=== PATIENT | female | born 1990 | race Caucasian/White ===

== ENCOUNTER 2022-03-18 08:51 | Emergency (ER) | payer OTHER, SELFPAY ==
[2022-03-18 08:53] VITALS: BP 148/90; PULSE 81; RESP 16; TEMP 36.2; O2SAT 99
--- NOTE | 2022-03-18 09:01 | ED.DENTAL ---
HPI - Dental/Oral General Chief complaint: Dental/Oral Stated complaint: tooth infection, bruising to face Time Seen by Provider: 03/18/22 09:00 History of Present Illness HPI Narrative: 31-year-old female presents the emergency room with complaints of left lower molar pain. Patient states general surgery, to remove her for wisdom teeth. States oral surgeon broke off her left lower molar and is remained in place. Patient states that she has had significant amount of pain there and bruising to the exterior surface of her left lower jaw. Patient states that she was on amoxicillin for approximately 2 months prior to and after the procedure. States that she has taken clindamycin following the procedure, and has noticed she develops hives every evening for the past 3 nights. Patient states that she has an appointment to follow-up with her oral surgeon next week. Related Data Allergies Allergy/AdvReac Type Severity Reaction Status Date / Time No Known Allergies Allergy Verified 03/18/22 09:03 Review of Systems Review of Systems: CONSTITUTIONAL: Denies fever, chills, or sweats. EYES: Denies visual changes, redness, or discharge. ENT: Reports dental pain CARDIOVASCULAR: Denies chest pain, palpitations, or edema. RESPIRATORY: Denies cough or dyspnea. GASTROINTESTINAL: Denies abdominal pain, nausea, vomiting, or diarrhea. GENITOURINARY: Denies dysuria or hematuria. SKIN: Denies rash or itching. MUSCULOSKELETAL: Denies back pain, joint pain, or myalgia. NEUROLOGIC: Denies headache, numbness, dizziness, or weakness. PSYCHIATRIC: Denies anxiety or depression. Exam Narrative: GENERAL: Well-appearing, well-nourished, and in no acute distress. HEAD: Normocephalic, atraumatic. EYES: PERRLA and EOMI. ENT: Fractured left lower molar. No surrounding erythema, no notable abscess, no gingival swelling NECK: Supple. No adenopathy or masses. No carotid bruits or JVD CHEST: Clear to auscultation. No respiratory distress. No wheezes rales or rhonchi HEART: Regular rate and rhythm. No murmur heard. Normal peripheral pulses. ABDOMEN: Soft, nontender, nondistended, normal active bowel sounds. EXTREMITIES: Normal range of motion. No edema. SKIN: Warm, dry, no rash. NEURO: No focal deficits. Alert and oriented x3. PSYCH: Normal mood and affect. Course Vital Signs Vital signs: Vital Signs Temperature 36.2 C L 03/18/22 08:53 Pulse Rate 81 03/18/22 08:53 Respiratory Rate 16 03/18/22 08:53 Blood Pressure 148/90 H 03/18/22 08:53 Pulse Oximetry 99 03/18/22 08:53 Temperature 36.2 C L 03/18/22 08:53 Pulse Rate 81 03/18/22 08:53 Respiratory Rate 16 03/18/22 08:53 Blood Pressure 148/90 H 03/18/22 08:53 Pulse Oximetry 99 03/18/22 08:53 Procedures Nerve Block Nerve Block 1: Nerve block date: 03/18/22 Nerve block time: 09:29 Time out performed: Yes Local Anesthetic: bupivacaine 0.25% and with epi Amount of anesthesia used (mL): 3 Side: left Nerve Blocks: other (left inferior alveolar ) Intraoral Nerve Block: inferior alveolar Procedure Successful: Yes Patient Tolerated Procedure: well Complications: none Discharge Plan Discharge Clinical Impression: Toothache Patient Disposition: Home, Self-Care Condition: Stable Instructions: Antibiotic Form, Toothache (ED) Prescriptions: New hydrocodone-acetaminophen 5-325 mg tablet 1 tablet PO Q8H PRN (Reason: pain) Qty: 15 0RF Follow-up/Referrals: Watson Lomax M.D. [Primary Care Provider] - Stand Alone Forms: Work/School Release IP Time of Disposition: 09:31
== END 2022-03-18 09:45 | disposition home or self-care (01) ==
LOC: ANHED 09:35
PROVIDERS: Emergency Provider Nurse Practitioner Family; PCP Family Medicine
DX: K08.89 Other specified disorders of teeth and supporting structures (principal)
CPT/HCPCS: 64400; 99283

== ENCOUNTER 2022-07-03 13:53 | Emergency (ER) | payer MEDICAID, SELFPAY ==
[2022-07-03 13:59] VITALS: BP 137/91; PULSE 81; RESP 19; TEMP 36.6; O2SAT 97
--- NOTE | 2022-07-03 14:18 | ED.SKABFB ---
HPI - Skin/Abscess/Foreign Bdy General Chief complaint: Skin/Abscess/Foreign Body Stated complaint: hives over a week now Time Seen by Provider: 07/03/22 13:57 Source: patient and RN notes reviewed Mode of arrival: ambulatory Limitations: no limitations History of Present Illness complaint: rash Onset (ago): week(s) (1) Tetanus up to date: unsure Location: generalized Severity: mild Quality: pruritic and other (no acute pain) Relieving factors: none Exacerbating factors: none Associated symptoms: nausea and other (mild dizziness, none in the ED) Treatments prior to arrival: none Related Data Allergies Allergy/AdvReac Type Severity Reaction Status Date / Time clindamycin Allergy Unknown Verified 07/03/22 14:29 Review of Systems Review of Systems: All systems reviewed & are unremarkable except as noted in HPI and below Constitutional: Constitutional: Reports no additional constitutional complaints Eyes: Eyes: Reports no additional eye complaints ENT: Reports system reviewed and no additional complaints, except as documented Cardiovascular: Cardiovascular: Reports no additional cardiovascular complaints Respiratory: Respiratory: Reports no additional respiratory complaints Gastrointestinal: Gastrointestinal: Reports no additional gastrointestinal complaints Genitourinary: Genitourinary: Reports no additional female genitourinary complaints Musculoskeletal: Musculoskeletal: Reports no additional musculoskeletal complaints Integumentary/Breasts: Skin/Breast: Reports system reviewed and no additional complaints, except as docu Neurologic: Reports system reviewed and no additional complaints, except as documented Psychiatric: Psychiatric: Reports no additional psychiatric complaints Endocrine: Endocrine: Reports no additional endocrine complaints Hematologic/Lymphatic: Hematologic/Lymphatic: Reports no additional hematologic/lymphatic complaints Allergic/Immunologic: Allergic/Immunologic: Reports no additional allergic/immunologic complaints [facility] Past Medical History Medical History Urticaria Exam Const: General: no acute distress Nutritional Appearance: obese Orientation/consciousness: patient oriented x3 Limitations: no limitations HENMT: Head: normal to inspection Ears: external ears normal, TM's normal bilaterally and EAC's normal General nose exam: Normal external nose present and Normal nares present Face and sinus: normal facial exam and sinuses nontender Mouth: Yes Normal oral and palatal mucosa present and Yes moist mucous membranes Teeth and gingiva: dentition normal Throat: posterior oropharynx normal Eyes: Conjunctivae: conjunctivae normal Pupils: Equal, round and reactive pupils present EOM: EOMs intact bilaterally Neck: Neck: normal visual inspection, no lymphadenopathy and no meningeal signs Chest: Chest palpation & inspection: normal inspection of the chest Resp: Effort & Inspection: normal respiratory effort Auscultation: clear to auscultation bilaterally Cardio: Rate: regular rate Rhythm: regular rhythm GI: GI Palp: Yes Soft to palpation and No Tenderness to palpation present (GI) Auscultation: normal bowel sounds : General: Yes bladder normal to palpation and Yes no CVA tenderness Bimanual exam- vagina & uterus: bladder normal to palpation Back/Spine/Pelvis: Back: no CVA tenderness Skin: General skin exam: normal color Rashes: no rashes (mild chronic erythematous maculo-papular rash of upper limbs mostly.) Wounds: no wounds Neuro: General: patient oriented x3, moves all extremities, no meningeal signs, no focal motor deficits and CN's II-XI intact bilaterally Cranial nerves: Yes Equal, round and reactive pupils present and Yes Nystagmus not present Speech: normal speech Gait exam (Neuro): Normal gait present Extrem: General: normal to inspection and no pedal edema Psych: Mental Status: mental status g
[2022-07-03] MEDS: methylPREDNISolone SOD SUCC 125 MG VIAL IM (14:25)
[2022-07-03] MEDS: diphenhydrAMINE HCl CAP 25 MG CAPSULE 50 MG PO (14:25)
[2022-07-03 14:38] VITALS: BP 127/87; PULSE 92; RESP 18; TEMP 36.6; O2SAT 97
== END 2022-07-03 14:46 | disposition home or self-care (01) ==
LOC: CHSED 14:36
PROVIDERS: Emergency Provider Emergency Medicine; PCP Family Medicine
DX: L50.9 Urticaria, unspecified (principal); L25.9 Unspecified contact dermatitis, unspecified cause
CPT/HCPCS: 96372; 99283; A9270; J2930

== ENCOUNTER 2023-06-03 18:45 | Emergency (ER) | payer OTHER, SELFPAY ==
[2023-06-03 18:49] VITALS: BP 134/95; PULSE 135; TEMP 36.6; O2SAT 96
--- NOTE | 2023-06-03 19:19 | ED.GENADULT ---
HPI - General Adult General Chief complaint: Nausea/Vomiting/Diarrhea Stated complaint: chest pain/vomiting/diarrhea Time Seen by Provider: 06/03/23 19:05 History of Present Illness HPI narrative: Cammy presented to the ED with one day of vomiting and diarrhea. She has had over 10 episodes of non-bloody vomiting and watery diarrhea as well as abdominal cramping. She has had intermittent chest pain that is worse when she lays on her left side. There is no dyspnea or lightheadedness with it and it does not radiate. No recent antibiotics. Related Data Home Medications Medication Instructions Recorded Confirmed atorvastatin 20 mg tablet 40 mg PO DAILY 07/03/22 06/03/23 ergocalciferol (vitamin D2) 1,250 50,000 unit PO MONTHLY 07/03/22 06/03/23 mcg (50,000 unit) capsule levothyroxine 88 mcg tablet 88 mcg PO DAILY 07/03/22 06/03/23 metformin 500 mg tablet,extended 1,000 mg PO BID 07/03/22 06/03/23 release 24 hr propranolol 80 mg capsule,24 80 mg PO DAILY 07/03/22 06/03/23 hr,extended release sertraline 100 mg tablet 100 mg PO DAILY 07/03/22 06/03/23 bupropion HCl 150 mg 24 hr tablet, 150 mg PO DAILY 06/03/23 06/03/23 extended release dulaglutide 4.5 mg/0.5 mL 4.5 mg subcut WEEKLY 06/03/23 06/03/23 subcutaneous pen injector (Trulicity) etonogestrel 68 mg subdermal 1 implant subdermal ONCE 06/03/23 06/03/23 implant (Nexplanon) labetalol 100 mg tablet 100 mg PO BID 06/03/23 06/03/23 norethindrone 1 mg-ethinyl 1 tablet PO DAILY PRN BREAK THRU 06/03/23 06/03/23 estradiol 10 mcg (24)-iron 10 BLEEDING mcg(2) tablet (Lo Loestrin Fe) omeprazole 40 mg capsule,delayed 40 mg PO DAILY 06/03/23 06/03/23 release rizatriptan 10 mg tablet See Rx Instructions .Route 06/03/23 06/03/23 .COMPLEX PRN Migraine Headache ziprasidone HCl 40 mg capsule 40 mg PO BID 06/03/23 06/03/23 Allergies Allergy/AdvReac Type Severity Reaction Status Date / Time lisdexamfetamine Allergy Intermediate Hives Verified 06/03/23 19:17 [From Vyvanse] clindamycin Allergy Hives Verified 06/03/23 19:17 Review of Systems Review of Systems: All systems reviewed & are unremarkable except as noted in HPI and below PMFSH Past Medical History Medical History ADHD Anxiety Bipolar 1 disorder Depression Diabetes GERD (gastroesophageal reflux disease) Hypothyroid PCOS (polycystic ovarian syndrome) Polycystic kidney Urticaria Family History Family History Mother Breast cancer Thyroid cancer Sibling Thyroid cancer Father Heart disease Skin cancer Diabetes mellitus Social History Social History Smoking status: Never smoker Alcohol intake: never Substance use: never Living arrangements: with family Occupation/Education: occupation Gender identity (if verbalized by the patient): Female Sexual Orientation (if Verbalized by the Patient): Straight or Heterosexual Exam Const: General: healthy appearing and no acute distress Nutritional Appearance: well nourished Orientation/consciousness: patient oriented x3 Limitations: no limitations HENMT: Head: normal to inspection Ears: external ears normal Face/Nose/Sinus: Normal external nose present Eyes: Conjunctivae: conjunctivae normal Pupils: Equal, round and reactive pupils present EOM: EOMs intact bilaterally Neck: Neck: normal visual inspection Chest: Chest palpation & inspection: normal inspection of the chest Resp: Effort & Inspection: normal respiratory effort Auscultation: clear to auscultation bilaterally Cardio: Rate: regular rate Rhythm: regular rhythm GI: Inspection: non-distended GI Palp: Yes Soft to palpation, No Tenderness to palpation present (GI), No Guarding due to palpation present (GI) and No Rigid due to palpation Auscultation: normal bowel sounds Back/Spine/Pelvis: Htiesh
--- NOTE | 2023-06-03 19:22 | ECG_ITS ---
Measurements Intervals [place] Rate: 129 P: 49 NC: 154 QRS: 37 QRSD: 78 T: 20 QT: 362 QTc: 532 Interpretive Statements POOR QUALITY ECG BECAUSE OF BASELINE ARTIFACT SINUS TACHYCARDIA NONSPECIFIC T-WAVE ABNORMALITY ABNORMAL RHYTHM ECG NO PREVIOUS ECG AVAILABLE FOR COMPARISON Electronically Signed On 06-04-2023 14:36:35 CDT by Thiago Hernandez M.D.
[2023-06-03] MEDS: SODIUM CHLORIDE 0.9% IV 1,000 ML 999 ML IV CONT ×2 (19:37→21:18)
[2023-06-03] MEDS: ONDANSETRON INJ 4 MG/2 ML VIAL IV PUSH (19:37)
[2023-06-03 19:46] LABS: Basophils Absolute Auto 0.02 K/mm3 (0.00-0.10); Basophils Percent Auto 0.3 % (0.0-1.0); Eosinophils Absolute Auto 0.01 K/mm3 (0.02-0.50); Eosinophils Percent Auto 0.1 % (1.0-6.0); Hematocrit 50.4 % (35.0-49.0); Hemoglobin 16.3 g/dL (12.0-15.0); Immature Granulocyte Absolute 0.03 K/mm3 (0.00-0.00); Immature Granulocyte Percent A 0.4 % (0.0-0.0); Mean Corpuscular HGB Conc 32.3 g/dL (32.0-36.0); Mean Corpuscular Hemoglobin 27.9 pg (27.0-31.0); Mean Corpuscular Volume 86.2 fL (78.0-102.0); Mean Platelet Volume 10.3 fl (9.2-11.8); Monocytes Absolute Auto 0.33 K/mm3 (0.10-0.90); Monocytes Percent Auto 4.4 % (2.0-11.0); Neutrophils Absolute Auto 6.7 K/mm3 (1.7-7.2); Neutrophils Percent Auto 90.8 % (50.0-70.0); Platelet Count Result 339 K/mm3 (150-420); Red Blood Count 5.85 M/mm3 (4.20-5.40); Red Cell Distribution Width 13.8 % (11.6-14.4); White Blood Count 7.4 K/mm3 (4.8-10.8)
[2023-06-03 20:01] LABS: Appearance Urine Clear (Clear); Bilirubin Urine Negative (Negative); Blood Urine Trace-Intact (Negative); Color Urine Light Yellow (Yellow); Glucose Urine UA 3+ (Negative); Ketones Urine Negative (Negative); Leukocyte Esterase Ur Negative LEU/UL (Negative); Nitrate Urine Negative (Negative); Protein Urine Negative (Negative); Urobilinogen Urine 0.2 mg/dL (0.2-1.0)
[2023-06-03 20:09] LABS: Add Urine Microscopic? YES; Bacteria Urine 2+ /hpf; Squamous Epithelial Cell Urine Few /hpf (Few)
[2023-06-03 20:10] VITALS: BP 147/86; PULSE 124; RESP 20; O2SAT 97
[2023-06-03 20:12] LABS: Alanine Aminotransferase 41 U/L (14-59); Albumin Level 3.8 g/dL (3.4-5.0); Alkaline Phosphatase 82 U/L (46-116); Anion Gap 16 mmol/L (8-16); Aspartate Amino Transferase 23 U/L (15-37); Bilirubin,Total 0.5 mg/dL (0.00-1.00); Blood Urea Nitrogen 22 mg/dL (7-18); Carbon Dioxide 22 mmol/L (21-32); Chloride 100 mmol/L (98-108); Estimated CRCL calculation 66 ml/min; Estimated Glomerular Filt Rate 38; Glucose 255 mg/dL (70-99); Lipase 27 U/L (16-77); Osmolality Calculated 298 mOsm/kg (285-295); Sodium 138 mmol/L (136-145); Total Protein 8.5 g/dL (6.4-8.2)
[2023-06-03 20:14] LABS: Troponin I < 4.0 ng/L (0.00-60.4)
[2023-06-03 20:26] LABS: Pregnancy On Board Control Positive; Urine Pregnancy Test Negative
[2023-06-03 20:34] LABS: Influenza A QL RT-PCR Negative (Negative); Influenza B QL RT-PCR Negative (Negative); RSV RNA, RT-PCR Negative (Negative); SARS-CoV-2 RNA PCR Negative (Negative)
[2023-06-03 21:00] VITALS: BP 137/95; PULSE 130; RESP 20; O2SAT 95
[2023-06-03 22:00] VITALS: BP 135/109; PULSE 125; RESP 20; O2SAT 96
== END 2023-06-03 22:15 | disposition home or self-care (01) ==
PROVIDERS: Emergency Provider Family Medicine; PCP Family Medicine
DX: K52.9 Noninfective gastroenteritis and colitis, unspecified (principal); E03.9 Hypothyroidism, unspecified; F32.A Depression, unspecified; F41.9 Anxiety disorder, unspecified; E11.9 Type 2 diabetes mellitus without complications; Z79.84 Long term (current) use of oral hypoglycemic drugs; Z79.899 Other long term (current) drug therapy; Z20.822 Contact with and (suspected) exposure to COVID-19
CPT/HCPCS: 36415; 80053; 81001; 81025; 83690; 84484; 85025; 87637; 93005; 96361; 99284; J2405; J7030

== ENCOUNTER 2023-06-11 09:42 | Outpatient (CLI) | payer OTHER, SELFPAY ==
[2023-06-11 10:18] LABS: Hemoglobin A1C 7.2 % (<5.7)
[2023-06-11 10:32] LABS: Alanine Aminotransferase 68 U/L (14-59); Albumin Level 3.2 g/dL (3.4-5.0); Alkaline Phosphatase 81 U/L (46-116); Anion Gap 10 mmol/L (8-16); Aspartate Amino Transferase 29 U/L (15-37); Bilirubin,Total 0.5 mg/dL (0.00-1.00); Calcium 8.9 mg/dL (8.5-10.1); Carbon Dioxide 25 mmol/L (21-32); Chloride 105 mmol/L (98-108); Estimated Glomerular Filt Rate > 60; Glucose 168 mg/dL (70-99); Potassium 4.1 mmol/L (3.5-5.1); Sodium 140 mmol/L (136-145); Total Protein 6.4 g/dL (6.4-8.2)
[2023-06-11 10:43] LABS: Blood Urea Nitrogen 16 mg/dL (7-18); Osmolality Calculated 295 mOsm/kg (285-295)
== END 2023-06-11 09:43 | disposition home or self-care (01) ==
LOC: CHSLAB 09:47
PROVIDERS: PCP Family Medicine
DX: N17.9 Acute kidney failure, unspecified (principal); E11.69 Type 2 diabetes mellitus with other specified complication
CPT/HCPCS: 36415; 80053; 83036; 87045; 87177; 87209; 87427; 87449

== ENCOUNTER 2023-07-22 09:15 | Outpatient (CLI) | payer OTHER, SELFPAY ==
[2023-07-22 09:29] LABS: Basophils Absolute Auto 0.02 K/mm3 (0.00-0.10); Basophils Percent Auto 0.2 % (0.0-1.0); Eosinophils Absolute Auto 0.16 K/mm3 (0.02-0.50); Eosinophils Percent Auto 1.7 % (1.0-6.0); Hematocrit 40.7 % (35.0-49.0); Hemoglobin 13.4 g/dL (12.0-15.0); Immature Granulocyte Absolute 0.04 K/mm3 (0.00-0.00); Immature Granulocyte Percent A 0.4 % (0.0-0.0); Lymphocytes Absolute Auto 2.57 K/mm3 (1.10-4.50); Lymphocytes Percent Auto 27.1 % (18.0-42.0); Mean Corpuscular HGB Conc 32.9 g/dL (32.0-36.0); Mean Corpuscular Hemoglobin 27.8 pg (27.0-31.0); Mean Corpuscular Volume 84.4 fL (78.0-102.0); Mean Platelet Volume 9.3 fl (9.2-11.8); Monocytes Absolute Auto 0.56 K/mm3 (0.10-0.90); Monocytes Percent Auto 5.9 % (2.0-11.0); Neutrophils Absolute Auto 6.1 K/mm3 (1.7-7.2); Neutrophils Percent Auto 64.7 % (50.0-70.0); Platelet Count Result 298 K/mm3 (150-420); Red Blood Count 4.82 M/mm3 (4.20-5.40); Red Cell Distribution Width 14.4 % (11.6-14.4); White Blood Count 9.5 K/mm3 (4.8-10.8)
[2023-07-22 09:37] LABS: Creatinine Urine 346.25 mg/dL (40-278); Microalbumin Urine Random 24.4 mg/L
[2023-07-22 09:58] LABS: Albumin Level 3.8 g/dL (3.4-5.0); Anion Gap 11 mmol/L (8-16); Blood Urea Nitrogen 18 mg/dL (7-18); Calcium 10.1 mg/dL (8.5-10.1); Carbon Dioxide 26 mmol/L (21-32); Chloride 101 mmol/L (98-108); Estimated Glomerular Filt Rate > 60; Glucose 190 mg/dL (70-99); Osmolality Calculated 292 mOsm/kg (285-295); Potassium 4.1 mmol/L (3.5-5.1); Sodium 138 mmol/L (136-145)
[2023-07-25 19:37] LABS: Parathyroid Intact 30 pg/mL (14-64)
== END 2023-07-22 09:16 | disposition home or self-care (01) ==
PROVIDERS: PCP Family Medicine
DX: I10 Essential (primary) hypertension (principal)
CPT/HCPCS: 36415; 80069; 82043; 83970; 85025

== ENCOUNTER 2023-10-22 08:45 | Emergency (ER) | payer OTHER, SELFPAY ==
[2023-10-22 08:45] VITALS: BP 152/102; PULSE 120; RESP 18; TEMP 36.3; O2SAT 95
--- NOTE | 2023-10-22 08:55 | ED.GENADULT ---
HPI - General Adult General Chief complaint: Unspecified Stated complaint: high blood sugar Time Seen by Provider: 10/22/23 08:54 Source: patient Mode of arrival: ambulatory Limitations: no limitations History of Present Illness HPI narrative: Patient is a 33-year-old female with a significant past medical history that presents today for elevated blood glucose. She states the last night her glucose was up in the 400s and she has Lantus that she uses only for emergencies and took 10 units of Lantus last night and in the lower glucose very much. She normally only takes metformin for diabetes. She states that she was feeling little lightheaded in [place] and asthma she checked her sugars could only she does not check her blood sugars. Her last A1c was 8 or 9 she was not sure which 1 but she states that they did put her on Jardiance which she was getting a UTI so she stopped the Jardiance has only been on metformin. Onset (ago): day(s) Severity: mild Quality: constant Relieving factors: other (insulin ) Exacerbating factors: eating Associated symptoms: denies other symptoms Treatments prior to arrival: other (lantus) Related Data Home Medications Medication Instructions Recorded Confirmed atorvastatin 20 mg tablet 40 mg PO DAILY 07/03/22 06/03/23 ergocalciferol (vitamin D2) 1,250 50,000 unit PO MONTHLY 07/03/22 06/03/23 mcg (50,000 unit) capsule levothyroxine 88 mcg tablet 88 mcg PO DAILY 07/03/22 06/03/23 metformin 500 mg tablet,extended 1,000 mg PO BID 07/03/22 06/03/23 release 24 hr propranolol 80 mg capsule,24 80 mg PO DAILY 07/03/22 06/03/23 hr,extended release sertraline 100 mg tablet 100 mg PO DAILY 07/03/22 06/03/23 bupropion HCl 150 mg 24 hr tablet, 150 mg PO DAILY 06/03/23 06/03/23 extended release dulaglutide 4.5 mg/0.5 mL 4.5 mg subcut WEEKLY 06/03/23 06/03/23 subcutaneous pen injector (Trulicity) etonogestrel 68 mg subdermal 1 implant subdermal ONCE 06/03/23 06/03/23 implant (Nexplanon) labetalol 100 mg tablet 100 mg PO BID 06/03/23 06/03/23 norethindrone 1 mg-ethinyl 1 tablet PO DAILY PRN BREAK THRU 06/03/23 06/03/23 estradiol 10 mcg (24)-iron 10 BLEEDING mcg(2) tablet (Lo Loestrin Fe) omeprazole 40 mg capsule,delayed 40 mg PO DAILY 06/03/23 06/03/23 release rizatriptan 10 mg tablet See Rx Instructions .Route 06/03/23 06/03/23 .COMPLEX PRN Migraine Headache ziprasidone HCl 40 mg capsule 40 mg PO BID 06/03/23 06/03/23 Allergies Allergy/AdvReac Type Severity Reaction Status Date / Time lisdexamfetamine Allergy Intermediate Hives Verified 10/22/23 09:05 [From Wiley] clindamycin Allergy Hives Verified 10/22/23 09:05 Review of Systems Review of Systems: All systems reviewed & are unremarkable except as noted in HPI and below Constitutional: Constitutional: Reports no additional constitutional complaints Eyes: Eyes: Reports no additional eye complaints ENT: Reports system reviewed and no additional complaints, except as documented Cardiovascular: Cardiovascular: Reports no additional cardiovascular complaints Respiratory: Respiratory: Reports no additional respiratory complaints Gastrointestinal: Gastrointestinal: Reports no additional gastrointestinal complaints Genitourinary: Genitourinary: Reports no additional female genitourinary complaints Musculoskeletal: Musculoskeletal: Reports no additional musculoskeletal complaints Integumentary/Breasts: Skin/Breast: Reports system reviewed and no additional complaints, except as docu Neurologic: Reports system reviewed and no additional complaints, except as documented Psychiatric: Psychiatric: Reports no additional psychiatric complaints Endocrine: Endocrine: Reports no additional endocrine complaints Hematologic/Lymphatic: Hematologic/Lymphatic: Reports no additional hematologic/lymphatic complaints Allergic/Immunologic: Allergic/Immunologic: Reports no additional allergic/immunologic complaints PMFSH Past M
[2023-10-22 08:58] LABS: Glucose Point of Care 241 mg/dl (65-105)
[2023-10-22] MEDS: INSULIN HUMAN REGULAR (*BKC) 1,000 UNITS/10 ML VIAL 5 UNITS SUB-Q (09:27)
[2023-10-22 09:30] VITALS: BP 150/98; PULSE 99; RESP 18; TEMP 36.3; O2SAT 97
== END 2023-10-22 09:30 | disposition home or self-care (01) ==
LOC: CHSED 09:10
PROVIDERS: Emergency Provider Family Medicine; PCP Family Medicine
DX: E11.65 Type 2 diabetes mellitus with hyperglycemia (principal); E03.9 Hypothyroidism, unspecified; Z79.84 Long term (current) use of oral hypoglycemic drugs
CPT/HCPCS: 82948; 99283; J1815

== ENCOUNTER 2023-10-28 08:37 | Outpatient (CLI) | payer OTHER, SELFPAY ==
--- NOTE | ~2023-10-28 | MR_ITS ---
EXAMINATION: MR abdomen wo con DATE: 10/28/2023 09:39 INDICATION: Polycystic renal disease. TECHNIQUE: Magnetic resonance imaging (MRI) of the abdomen was performed without intravenous contrast . COMPARISON: None. FINDINGS: There is diffuse hepatic steatosis. The gallbladder, spleen, pancreas, and adrenal glands are normal. There are multiple cysts in each kidney measuring up to 3.7 cm on the right. Right kidney measures 9 .8 x 8.2 x 7.0 cm. Left kidney measures 8.6 x 7.3 x 7.9 cm. There are no dilated loops of bowel. Ther e are no pathologically enlarged lymph nodes. There is no free intraperitoneal fluid. IMPRESSION: 1. Early stage polycystic kidney disease. Reviewed, dictated and finalized at location E. [employer]
== END 2023-10-28 08:38 | disposition home or self-care (01) ==
LOC: CHSIMG 08:38
PROVIDERS: PCP Family Medicine
DX: Q61.3 Polycystic kidney, unspecified (principal)
CPT/HCPCS: 74181

== ENCOUNTER 2023-11-22 08:19 | Emergency (ER) | payer OTHER, SELFPAY ==
[2023-11-22 08:25] VITALS: BP 178/118; PULSE 98; RESP 18; TEMP 36.8; O2SAT 98
[2023-11-22 08:34] VITALS: BP 172/118; PULSE 108; RESP 20; O2SAT 97
[2023-11-22 08:37] LABS: Glucose Point of Care 198 mg/dl (65-105)
[2023-11-22 09:11] LABS: Basophils Percent Auto 0.5 % (0.2-1.2); Eosinophils Absolute Auto 0.1 K/mm3 (0-0.3); Eosinophils Percent Auto 1.3 % (0-4.4); Hematocrit 42.6 % (37.0-47.0); Hemoglobin 13.6 g/dL (12.0-15.0); Immature Granulocyte Absolute 0.04 K/mm3 (0.00-0.031); Immature Granulocyte Percent A 0.5 % (0-0.5); Lymphocytes Absolute Auto 2.07 K/mm3 (0.9-3.2); Lymphocytes Percent Auto 25.3 % (18.3-44.2); Mean Corpuscular HGB Conc 31.9 g/dl (32-36); Mean Corpuscular Hemoglobin 27.6 pg (26-34); Mean Corpuscular Volume 86.6 fl (80-100); Mean Platelet Volume 10.1 fl (7.4-10.4); Monocytes Absolute Auto 0.6 K/mm3 (0.1-0.6); Monocytes Percent Auto 6.8 % (2.6-8.5); Neutrophils Absolute Auto 5.4 K/mm3 (1.3-6.7); Neutrophils Percent Auto 65.6 % (45.5-73.1); Platelet Count Result 338 k/mm3 (150-375); Red Blood Count 4.92 M/mm3 (4.2-5.4); Red Cell Distribution Width 13.5 % (11.5-14.5); White Blood Count 8.2 K/mm3 (4.5-10.0)
[2023-11-22] MEDS: SODIUM CHLORIDE 0.9% IV 1,000 ML 999 ML IV CONT (09:30)
[2023-11-22 09:32] LABS: Alanine Aminotransferase 65 U/L (6-35); Albumin Level 4.4 g/dL (3.5-5.1); Alkaline Phosphatase 78 U/L (38-126); Anion Gap 12 mmol/L (8-16); Aspartate Amino Transferase 61 U/L (14-36); Bilirubin,Total 0.6 mg/dL (0.2-1.3); Blood Urea Nitrogen 20 mg/dL (7-17); Calcium 9.4 mg/dL (8.4-10.2); Carbon Dioxide 22 mmol/L (22-30); Chloride 102 mmol/L (98-107); Estimated CRCL calculation 110 ml/min; Estimated Glomerular Filt Rate > 60; Glucose 185 mg/dL (65-110); Potassium 3.7 mmol/L (3.4-5.0); Sodium 136 mmol/L (137-145)
[2023-11-22 10:36] LABS: Appearance Urine Cloudy (Clear); Bacteria Urine 2+ /hpf; Bilirubin Urine Negative (Negative); Blood Urine Negative (Negative); Color Urine Yellow (Yellow); Glucose Urine UA 1+ mg/dL (Negative); Ketones Urine 2+ mg/dL (Negative); Leukocyte Esterase Ur Negative LEU/UL (Negative); Need Manual Microscopic Reviewed; Nitrate Urine Negative (Negative); Protein Urine 1+ mg/dL (Negative); RBC Urine 0-2 /hpf (0-2); Squamous Epithelial Cell Urine Moderate /hpf (Few); WBC Urine 0-5 /hpf; pH Urine 5.5 (5.0-9.0)
[2023-11-22 10:37] LABS: Specific Grav Ur 1.041 (1.001-1.035)
[2023-11-22 10:39] LABS: Add Urine Microscopic? YES
[2023-11-22 11:23] VITALS: BP 171/104; PULSE 100; RESP 20; O2SAT 95
[2023-11-22 12:16] VITALS: BP 154/95; PULSE 106; RESP 20; O2SAT 96
--- NOTE | 2023-11-22 12:38 | ED.GENADULT ---
HPI - General Adult General Chief complaint: Recheck/Abnormal Lab/Rx Stated complaint: BS > 300 x 1 mos Time Seen by Provider: 11/22/23 08:24 History of Present Illness HPI narrative: Patient is a 33-year-old female who presents ER with concern for elevated blood sugar. She reports when she checks her blood sugar at home it is over 300. When she has it checked at a hospital it is in the 200s or lower. She reports she has been compliant with her diabetic medication regimen. She has follow-up with her primary care doctor tomorrow. She has no fevers chills or sweats. No nausea or vomiting. No urinary frequency urgency or dysuria. She without chest pain. Related Data Home Medications Medication Instructions Recorded Confirmed atorvastatin 20 mg tablet 40 mg PO DAILY 07/03/22 06/03/23 ergocalciferol (vitamin D2) 1,250 50,000 unit PO MONTHLY 07/03/22 06/03/23 mcg (50,000 unit) capsule levothyroxine 88 mcg tablet 88 mcg PO DAILY 07/03/22 06/03/23 metformin 500 mg tablet,extended 1,000 mg PO BID 07/03/22 06/03/23 release 24 hr propranolol 80 mg capsule,24 80 mg PO DAILY 07/03/22 06/03/23 hr,extended release sertraline 100 mg tablet 100 mg PO DAILY 07/03/22 06/03/23 bupropion HCl 150 mg 24 hr tablet, 150 mg PO DAILY 06/03/23 06/03/23 extended release dulaglutide 4.5 mg/0.5 mL 4.5 mg subcut WEEKLY 06/03/23 06/03/23 subcutaneous pen injector (Trulicity) etonogestrel 68 mg subdermal 1 implant subdermal ONCE 06/03/23 06/03/23 implant (Nexplanon) labetalol 100 mg tablet 100 mg PO BID 06/03/23 06/03/23 norethindrone 1 mg-ethinyl 1 tablet PO DAILY PRN BREAK THRU 06/03/23 06/03/23 estradiol 10 mcg (24)-iron 10 BLEEDING mcg(2) tablet (Lo Loestrin Fe) omeprazole 40 mg capsule,delayed 40 mg PO DAILY 06/03/23 06/03/23 release rizatriptan 10 mg tablet See Rx Instructions .Route 06/03/23 06/03/23 .COMPLEX PRN Migraine Headache ziprasidone HCl 40 mg capsule 40 mg PO BID 06/03/23 06/03/23 Allergies Allergy/AdvReac Type Severity Reaction Status Date / Time lisdexamfetamine Allergy Intermediate Hives Verified 10/22/23 09:05 [From Vyvanse] clindamycin Allergy Hives Verified 10/22/23 09:05 Review of Systems Review of Systems: All systems reviewed & are unremarkable except as noted in HPI and below Constitutional: Constitutional: Reports no additional constitutional complaints ENT: Reports system reviewed and no additional complaints, except as documented Cardiovascular: Cardiovascular: Reports no additional cardiovascular complaints Respiratory: Respiratory: Reports no additional respiratory complaints Gastrointestinal: Gastrointestinal: Reports no additional gastrointestinal complaints [facility] Past Medical History Medical History ADHD Anxiety Bipolar 1 disorder Depression Diabetes GERD (gastroesophageal reflux disease) Hypothyroid PCOS (polycystic ovarian syndrome) Polycystic kidney Urticaria Family History Family History Mother Breast cancer Thyroid cancer Sibling Thyroid cancer Father Heart disease Skin cancer Diabetes mellitus Social History Social History Smoking status: Never smoker Alcohol intake: never Substance use: never Living arrangements: with family Occupation/Education: occupation Gender identity (if verbalized by the patient): Female Sexual Orientation (if Verbalized by the Patient): Straight or Heterosexual Exam Narrative: GENERAL: Well-appearing, morbidly obese, and in no acute distress. HEAD: Normocephalic, atraumatic. ENT: Mucous membranes moist. NECK: Supple. CHEST: Clear to auscultation. No respiratory distress. HEART: Regular rate and rhythm. Normal peripheral pulses. ABDOMEN: Soft, nontender, nondistended. EXTREMITIES: Normal range of motion. No edema. SKIN: Warm,
[2023-11-22 12:53] VITALS: BP 158/98; PULSE 100; RESP 20; TEMP 36.6; O2SAT 96
== END 2023-11-22 12:54 | disposition home or self-care (01) ==
PROVIDERS: Emergency Provider Emergency Medicine; PCP Family Medicine
DX: E11.65 Type 2 diabetes mellitus with hyperglycemia (principal); E03.9 Hypothyroidism, unspecified; E28.2 Polycystic ovarian syndrome; K21.9 Gastro-esophageal reflux disease without esophagitis; Q61.3 Polycystic kidney, unspecified; F90.9 Attention-deficit hyperactivity disorder, unspecified type; F41.9 Anxiety disorder, unspecified; F31.9 Bipolar disorder, unspecified; E66.01 Morbid (severe) obesity due to excess calories; Z68.43 Body mass index [BMI] 50.0-59.9, adult; Z79.85 Long-term (current) use of injectable non-insulin antidiabetic drugs; Z79.84 Long term (current) use of oral hypoglycemic drugs
CPT/HCPCS: 36415; 80053; 81001; 82948; 85025; 96360; 99283; J7030

== ENCOUNTER 2024-03-28 08:52 | Outpatient (CLI) | payer OTHER, SELFPAY ==
[2024-03-28 09:26] LABS: Creatinine Urine 245.08 mg/dL (40-278); MALB Creatinine Ratio 9.2 mg/g (0-30); Microalbumin Urine Random 22.6 mg/L
[2024-03-28 09:28] LABS: Hemoglobin A1C 8.4 % (<5.7)
[2024-03-28 09:57] LABS: Alanine Aminotransferase 57 U/L (14-59); Albumin Level 3.5 g/dL (3.4-5.0); Alkaline Phosphatase 77 U/L (46-116); Anion Gap 13 mmol/L (4-12); Aspartate Amino Transferase 30 U/L (15-37); Bilirubin,Total 0.3 mg/dL (0.00-1.00); Blood Urea Nitrogen 13 mg/dL (7-18); Calcium 9.1 mg/dL (8.5-10.1); Carbon Dioxide 22 mmol/L (21-32); Chloride 100 mmol/L (98-108); Estimated Glomerular Filt Rate > 60; Glucose 231 mg/dL (70-99); Osmolality Calculated 287 mOsm/kg (285-295); Potassium 4.3 mmol/L (3.5-5.1); Sodium 135 mmol/L (136-145)
== END 2024-03-28 08:53 | disposition home or self-care (01) ==
LOC: CHSLAB 08:57
PROVIDERS: PCP Family Medicine
DX: E11.29 Type 2 diabetes mellitus with other diabetic kidney complication (principal); E11.65 Type 2 diabetes mellitus with hyperglycemia
CPT/HCPCS: 36415; 80053; 82043; 83036

== ENCOUNTER 2024-06-26 13:49 | Outpatient (CLI) | payer OTHER, SELFPAY ==
--- NOTE | ~2024-06-26 | MM_ITS ---
EXAMINATION: MM screening garett BI w bubba HISTORY: Screening mammogram, family history of breast cancer in her mother. TECHNIQUE: Craniocaudal and mediolateral oblique 3-D tomosynthesis images were obtained and synthetic 2-D images were generated. CAD analysis was submitted and interpreted. COMPARISON: No prior mammogram is available for comparison at this institution. BREAST PARENCHYMAL COMPOSITION:Not Dense. There are scattered areas of fibroglandular density. FINDINGS: There is a small probable ovoid mass at the 12:00 position left breast. No suspicious mass, calcification, or architectural distortion are identified in the right breast. IMPRESSION: 12:00 position left breast probable mass. Spot compression views and ultrasound are recommended for further evaluation. BI-RADS Category 0: Incomplete: Needs additional imaging evaluation. Reviewed, dictated and finalized at [facility]. IMPRESSION: 12:00 position left breast probable mass. Spot compression views and ultrasoun d are recommended for further evaluation. BI-RADS Category 0: Incomplete: Needs additional imaging evaluation.
== END 2024-06-26 13:50 | disposition home or self-care (01) ==
PROVIDERS: PCP Family Medicine
DX: Z12.31 Encounter for screening mammogram for malignant neoplasm of breast (principal); R92.8 Other abnormal and inconclusive findings on diagnostic imaging of breast
CPT/HCPCS: 77063; 77067

== ENCOUNTER 2024-07-04 09:28 | Outpatient (CLI) | payer OTHER, SELFPAY ==
--- NOTE | ~2024-07-04 | MMUS_ITS ---
EXAMINATION: MM diagnostic garett LT w bubba, US breast LT limited HISTORY: Follow-up left breast asymmetry TECHNIQUE: Additional 3-D tomosynthesis images of the left breast were performed and synthetic 2-D im ages were generated. CAD analysis was submitted and interpreted. High resolution Limited left breast ultrasound was performed. COMPARISON: 06/26/2024 BREAST PARENCHYMAL COMPOSITION: Not dense: There are scattered areas of fibroglandular density. FINDINGS: MAMMOGRAPHIC FINDINGS: There is a persistent low-density mass in the upper inner quadrant of the left breast, middle third. There are no suspicious calcifications or architectural distortion. ULTRASOUND: Limited left breast ultrasound: At 12:00 10 cm from the nipple there is an oval circumscribed hypoech oic mass with parallel orientation, no posterior features measuring 10 x 8 x 4 mm. At 12:00, 5 cm fro m the nipple there is an oval hypoechoic mass with heterogeneous internal echotexture, no significant posterior features and no internal vascularity measuring 9 x 7 x 4 mm. At 10:00, 7 cm from the nippl e there is an oval 3 mm hypoechoic mass with no posterior features or internal vascularity. IMPRESSION: 1. Probable benign left breast masses. 2. Recommend 6 month follow-up diagnostic left mammogram and Limited left breast ultrasound BI-RADS category 3, probably benign findings. Reviewed, dictated and finalized at location [facility]. IMPRESSION: 1. Probable benign left breast masses. 2. Recommend 6 month follow-up diagnostic left mammogram and Limited left breas t ultrasound BI-RADS category 3, probably benign findings.
== END 2024-07-04 09:29 | disposition home or self-care (01) ==
LOC: CHSIMG 09:30
PROVIDERS: PCP Family Medicine; Visit Provider Family Medicine
DX: N63.25 Unspecified lump in the left breast, overlapping quadrants (principal)
CPT/HCPCS: 76642; 77061; 77065; G0279